=== PATIENT | male | born 1995 | race Caucasian/White ===

== ENCOUNTER 2017-01-06 15:50 | Observation (INO) | payer OTHER ==
[2017-01-06] MEDS ORDERED: ONDANSETRON 4 MG/2 ML VIAL IVP ONE (17:14)
[2017-01-06] MEDS ORDERED: FAMOTIDINE 20 MG/NACL 50 ML IV ONE (17:14)
[2017-01-06] MEDS ORDERED: NS 1,000 ML IV ONE ×2 (17:14)
--- NOTE | 2017-01-06 17:16 | CPEKG ---
Heart Rate: 59 RR Interval: 1017 P-R Interval: 132 QRSD Interval: 110 QT Interval: 424 QTC Interval: 420 P Danese: 56 QRS Danese: 79 T Wave Danese: 32 EKG Severity - ABNORMAL ECG - EKG Impression: SINUS RHYTHM EKG Impression: NONSPECIFIC INTRAVENTRICULAR CONDUCTION DELAY EKG Impression: LATERAL Q WAVES, PROBABLY NORMAL VARIATION Electronically Signed By: Darío Morales 06-Jan-2017 23:39:44
--- NOTE | 2017-01-06 17:20 | EDPHY ---
H & P Time Seen by Provider: 01/06/17 16:54 HPI/ROS: HPI Tingling in hands and feet, vomiting, diarrhea, feels weak. 21-year-old male by private vehicle with his father. This patient reports that on evening he started feeling nausea with loss of appetite and fatigue this was followed by watery diarrhea. He went up to [place] to see friends of his. He reports that he developed vomiting last night and had 6 episodes of nonbilious vomiting with multiple episodes of watery diarrhea. He denies any alcohol or drug use or other ingestions. His father had him returned home and his father picked him up from the airport about an hour prior to arrival to our emergency department and came straight here. The patient denies any ill contacts. No change in diet. He has not been camping. ROS: Constitutional: No fever, no chills. As above. Eyes: No discharge. No changes in vision. ENT: No sore throat. No nasal congestion or rhinorrhea. Respiratory: No cough. No shortness of breath. Cardiac: No chest pain, no palpitations. Gastrointestinal: No abdominal pain, as above. Genitourinary: No hematuria. No dysuria or increased frequency with urination. Musculoskeletal: No back pain. No neck pain. No myalgias or arthralgias. Skin: No rashes. Neurological: No headache. No focal weakness or altered sensation. Past medical history: Vasovagal syncope. Social history: Physical Exam: General Appearance: Sleepy on initial evaluation but easily arousable. Pale. This patient is responding to questions appropriately and in full sentences. This patient appears well-hydrated and well-nourished. Eyes: Pupils equal and round no pallor or injection. No lid edema, erythema or injection. ENT, Mouth: Mucous membranes are moist. The pharyngeal tissues are unremarkable. No edema or swelling. No asymmetry suggestive of abscess. No erythema or exudates. No tongue lacerations or abrasions. Respiratory: There are no retractions, lungs are clear to auscultation with good air movement bilaterally. Cardiovascular: Regular rate and rhythm. No murmur. Gastrointestinal: Abdomen is soft and nontender, no masses, bowel sounds normal. No focal tenderness at McBurney's point. No Chaves sign. Neurological: Motor sensory function is grossly intact. Cranial nerves are normal. Gait is normal. Skin: Warm and dry, no rashes. Musculoskeletal: Neck is supple and nontender. Extremities are symmetrical. All joints range without pain or impingement. Psychiatric: No agitation. No depression. Database: EKG: EKG time is 5:14 p.m.; EKG shows a narrow complex normal sinus rhythm with a ventricular rate of 59. Nonspecific intraventricular conduction delay noted. The AL, QRS, QT intervals are within normal limits. There are no ST-T wave changes indicative of ischemic or injury pattern. No evidence of right heart strain. No evidence of WPW, hypertrophic cardiomyopathy, Brugada syndrome. Interpreted by me. Imaging: Right upper quadrant ultrasound: Small amount of sludge in the gallbladder. Otherwise normal. Results were discussed with staff radiologist Dr. Casa Israel. CT scan of the abdomen and pelvis with IV contrast: Some gary portal edema in a dilated inferior vena cava. This is likely secondary to IV hydration. No other significant pathology. Results were discussed with staff radiologist Dr. Casa Israel. Procedures: Emergency department course: The patient was initially in room 25. While an IV was being placed he had a vasovagal syncopal episode. He became markedly diaphoretic and bradycardic into the 30s. soap slabber showed what appeared to be a junctional rhythm. Blood pressure had not been established at this time. He then had an episode of vomiting. He had been drinking blue Gatorade in his vomit was bluish in color. He was immediately moved to resuscitation Power 1. An additional IV was established. Dopamine and atropine to the bedside. He was started on IV normal saline 1-2 L to be bolused. His heart rate gradually came up and was clearly identifiable as a sinus rhythm on the monitor with a rate in the 50s. Initial blood pressure was 70/30 but this came up to 105/52 a short time later. EKG was performed. Blood glucose verified on serum chemistry as within normal limits. 5:30 p.m., patient re-evaluated, light bulb replacer shows a narrow complex sinus rhythm in the low 60s. Blood pressure is currently 107/60. He denies any complaints at this time. He will be given 4 mg of IV Zofran and 20 mg of IV Pepcid. 5:50 p.m., patient re-evaluated. He is resting comfortably at this time. I discussed the results of his blood work and elevated liver function test. Explained that we would obtain a right upper quadrant ultrasound to evaluate his gallbladder. Repeat abdominal exam he again has no right upper quadrant tenderness on palpation of this is negative will send a hepatitis panel. 6:15 p.m., patient re-evaluated. soap slabber shows a narrow complex sinus rhythm ventricular rate of 54. Blood pressure currently 90/72. Results of ultrasound discussed with father and patient. We will obtain a CT scan of the abdomen and pelvis to evaluate for possible malignancy or other pathology as an etiology of the patient's elevated liver function tests and vomiting. Hepatitis panel pending. 7:15 p.m., patient re-evaluated. Resting comfortably at this time. Results of CT scan discussed with him. Vital signs reviewed. soap slabber shows a narrow complex sinus rhythm ventricular rate of 54, blood pressure currently 90/ 52. Plan for admission discussed with him and his father. All of their questions were answered. 7:30 p.m., spoke with on-call hospitalist. She has accepted the patient for admission. Patient's remaining emergency department course under my care has been uneventful. Patient admitted to the hospitalist service, telemetry, in stable and improved condition. Differential Diagnosis: The differential diagnosis on this patient includes but is not limited to food borne illness, hypoglycemia, viral gastroenteritis, hepatitis, cholecystitis, cholangitis, pancreatitis, malignancy. This represents a partial list of diagnoses considered. These considerations are based on history, physical exam , past history, reassessment and diagnostic testing. Smoking Status: Never smoked Constitutional: Initial Vital Signs Temperature (C) 36.5 C 01/06/17 15:57 Heart Rate 80 01/06/17 15:57 Respiratory Rate 16 01/06/17 15:57 Blood Pressure 110/87 H 01/06/17 15:57 O2 Sat (%) 97 01/06/17 15:57 O2 Delivery Mode Room Air Allergies/Adverse Reactions: No Known Allergies Allergy (Unverified 03/10/12 13:10) Home Medications: Medication Instructions Recorded No Medications [NO HOME 1 ea [facility] 03/10/12 MEDICATIONS] Medical Decision Making - Data Points Laboratory Results: Laboratory Results 01/06/17 17:07 01/06/17 17:10 01/06/17 01/06/17 01/06/17 17:10 17:07 17:07 WBC 3.93 10^3/uL 10^3/uL (3.80-9.50) RBC 4.93 10^6/uL 10^6/uL (4.40-6.38) Hgb 16.0 g/dL g/dL (13.7-17.5) Hct 45.5 % % (40.0-51.0) MCV 92.3 fL fL (81.5-99.8) MCH 32.5 pg pg (27.9-34.1) MCHC 35.2 g/dL g/dL (32.4-36.7) RDW 12.0 % % (11.5-15.2) Plt Count 114 10^3/uL L 10^3/uL (150-400) MPV 9.5 fL fL (8.7-11.7) Neut % (Auto) 65.1 % % (39.3-74.2) Lymph % (Auto) 13.7 % L % (15.0-45.0) [place]yler % (Auto) 9.4 % % (4.5-13.0) Eos % (Auto) 11.2 % H % (0.6-7.6) Baso % (Auto) 0.3 % % (0.3-1.7) Nucleat RBC Rel Count 0.0 % % (0.0-0.2) Absolute Neuts (auto) 2.56 10^3/uL 10^3/uL (1.70-6.50) Absolute Lymphs (auto) 0.54 10^3/uL L 10^3/uL (1.00-3.00) Absolute Monos (auto) 0.37 10^3/uL 10^3/uL (0.30-0.80) Absolute Eos (auto) 0.44 10^3/uL H 10^3/uL (0.03-0.40) Absolute Basos (auto) 0.01 10^3/uL L 10^3/uL (0.02-0.10) Absolute Nucleated RBC 0.00 10^3/uL 10^3/uL (0-0.01) Immature Gran % 0.3 % % (0.0-1.1) Seg Neutrophils % 15 % % Band Neutrophils % 57 % % Lymphocytes % 19 % % Eosinophils % 9 % % Immature Gran # 0.01 10^3/uL 10^3/uL (0.00-0.10) Absolute Seg Neuts 0.59 10^/uL L 10^/uL (1.70-6.50) Absolute Band Neuts 2.24 10^3/uL H 10^3/uL (0.00-0.70) Absolute Lymphocytes 0.75 10^3/uL L 10^3/uL (1.00-3.00) Absolute Eosinophils 0.35 10^3/uL 10^3/uL (0.03-0.40) RBC/WBC/PLT Morphology NORMAL (NORMAL) Platelet Estimate DECREASED L (ADEQ) PT INR APTT Sodium 134 mEq/L mEq/L (134-144) Potassium 4.0 mEq/L mEq/L (3.5-5.2) Chloride 97 mEq/L mEq/L (97-110) Carbon Dioxide 27 mEq/l mEq/l (22-31) Anion Gap 10 mEq/L mEq/L (8-16) BUN 9 mg/dL mg/dL (7-23) Creatinine 0.8 mg/dL mg/dL (0.7-1.3) Estimated GFR > 60 Glucose 86 mg/dL mg/dL (70-100) Calcium 8.6 mg/dL mg/dL (8.5-10.4) Total Bilirubin 2.0 mg/dL H mg/dL (0.1-1.4) Conjugated Bilirubin 0.7 mg/dL H mg/dL (0.0-0.5) Unconjugated Bilirubin 1.3 mg/dL H mg/dL (0.0-1.1) AST 166 IU/L H IU/L (17-59) ALT 321 IU/L H IU/L (21-72) Alkaline Phosphatase 153 IU/L H IU/L (38-126) Total Protein 7.0 g/dL g/dL (6.3-8.2) Albumin 3.9 g/dL g/dL (3.5-5.0) Lipase 98.0 IU/L IU/L (23-300) Ethyl Alcohol < 10 mg/dL mg/dL (0-10) Hepatitis A IgM Ab Pending Hep Bs Antigen Pending Hep B Core IgM Ab Pending Hepatitis C Antibody Pending 01/06/17 17:00 WBC RBC Hgb Hct MCV MCH MCHC RDW Plt Count MPV Neut % (Auto) Lymph % (Auto) Schuyler % (Auto) Eos % (Auto) Baso % (Auto) Nucleat RBC Rel Count Absolute Neuts (auto) Absolute Lymphs (auto) Absolute Monos (auto) Absolute Eos (auto) Absolute Basos (auto) Absolute Nucleated RBC Immature Gran % Seg Neutrophils % Band Neutrophils % Lymphocytes % Eosinophils % Immature Gran # Absolute Seg Neuts Absolute Band Neuts Absolute Lymphocytes Absolute Eosinophils RBC/WBC/PLT Morphology Platelet Estimate PT 14.6 SEC SEC (12.0-15.0) INR 1.15 (0.83-1.16) APTT 30.9 SEC SEC (23.0-38.0) Sodium Potassium Chloride Carbon Dioxide Anion Gap BUN Creatinine Estimated GFR Glucose Calcium Total Bilirubin Conjugated Bilirubin Unconjugated Bilirubin AST ALT Alkaline Phosphatase Total Protein Albumin Lipase Ethyl Alcohol Hepatitis A IgM Ab Hep Bs Antigen Hep B Core IgM Ab Hepatitis C Antibody Medications Given: Discontinued Medications Sodium Chloride (Ns) 1,000 mls @ 0 mls/hr IV ONCE ONE PRN Reason: Wide Open Stop: 01/06/17 17:15 Last Admin: 01/06/17 17:00 Dose: 1,000 mls Sodium Chloride (Ns) 1,000 mls @ 0 mls/hr IV ONCE ONE PRN Reason: Wide Open Stop: 01/06/17 17:15 Last Admin: 01/06/17 17:20 Dose: 1,000 mls Famotidine/Sodium Chloride (Pepcid 20 Mg (Premix)) 50 mls @ 200 mls/hr IV EDNOW ONE Stop: 01/06/17 17:28 Last Admin: 01/06/17 18:17 Dose: 50 mls Ondansetron HCl (Zofran) 4 mg IVP EDNOW ONE Stop: 01/06/17 17:15 Last Admin: 01/06/17 18:30 Dose: Not Given Departure - Departure Disposition: [facility] In[facility] Acute Clinical Impression: Transaminitis, Vomiting, Diarrhea, Hypotension, Thrombocytopenia, Bradycardia Referrals: NONE *PRIMARY CARE P,. [Primary Care Provider] - As per Instructions
[2017-01-06 17:31] LABS: ALANINE AMINOTRANSFERASE 321 IU/L (21-72); ALBUMIN 3.9 g/dL (3.5-5.0); ALKALINE PHOSPHATASE 153 IU/L (38-126); ANION GAP 10 mEq/L (8-16); ASPARTATE AMINOTRANSFERASE 166 IU/L (17-59); BILIRUBIN-CONJUGATED 0.7 mg/dL (0.0-0.5); BILIRUBIN-UNCONJUGATED 1.3 mg/dL (0.0-1.1); CALCIUM 8.6 mg/dL (8.5-10.4); CARBON DIOXIDE 27 mEq/l (22-31); CHLORIDE 97 mEq/L (97-110); CREATININE 0.8 mg/dL (0.7-1.3); ETHANOL SERUM < 10 mg/dL (0-10); GLOMERULAR FILTRATION RATE > 60; GLUCOSE 86 mg/dL (70-100); SODIUM 134 mEq/L (134-144)
[2017-01-06 17:34] LABS: % IMMATURE GRANULYOCYTES 0.3 % (0.0-1.1); ABSOLUTE IMMATURE GRANULOCYTES 0.01 10^3/uL (0.00-0.10); ADD DIFF? NO; ADD MORPH? NO; ADD SCAN? YES; FRAGMENT RBC FLAG 0 (0-99); HEMATOCRIT 45.5 % (40.0-51.0); LIPEMIA HEMOLYSIS FLAG 90 (0-99); MEAN CELL HEMOGLOBIN 32.5 pg (27.9-34.1); MEAN CELL HEMOGLOBIN CONCENTR. 35.2 g/dL (32.4-36.7); MEAN CELL VOLUME 92.3 fL (81.5-99.8); MEAN PLATELET VOLUME 9.5 fL (8.7-11.7); PLATELET CLUMPS FLAG 20 (0-99); PLATELET COUNT 114 10^3/uL (150-400); RED BLOOD CELL COUNT 4.93 10^6/uL (4.40-6.38)
[2017-01-06 17:36] LABS: ATYPICAL LYMPHOCYTE FLAG 180 (0-99); LEFT SHIFT FLG 220 (0-99)
[2017-01-06 17:58] LABS: SCAN POSITIVE
[2017-01-06 18:04] LABS: PLATELET ESTIMATE DECREASED (ADEQ)
[2017-01-06] MEDS ORDERED: IOPAMIDOL (ISOVUE-300) 100 ML BTL IV ONE (18:29)
[2017-01-06 18:30] LABS: APTT 30.9 SEC (23.0-38.0); INR 1.15 (0.83-1.16); PROTIME(PATIENT) 14.6 SEC (12.0-15.0)
[2017-01-06] MEDS ORDERED: ONDANSETRON 4 MG/2 ML VIAL IVP PRN (20:59)
[2017-01-06] MEDS ORDERED: PROMETHAZINE HCL 25 MG/ML INJ IVP PRN (20:59)
[2017-01-06] MEDS ORDERED: ACETAMINOPHEN 325 MG TAB PO PRN (20:59)
[2017-01-06] MEDS ORDERED: ONDANSETRON DISINTEGRATING 4 MG TAB PO PRN (20:59)
[2017-01-06] MEDS ORDERED: PROMETHAZINE HCL 25 MG TAB PO PRN (20:59)
[2017-01-06] MEDS ORDERED: NS 1,000 ML IV SCH (21:00)
--- NOTE | 2017-01-06 21:27 | PDGENHP ---
History and Physical - Chief Complaint vomiting and diarrhea - History of Present Illness 21 yo otherwise healthy male presents to ED with 2 days of diarrhea and vomiting. He awoke 2 days ago feeling mild tingling in his hands. He then had watery diarrhea x1. Diarrhea occurred again the following day and was followed by several episodes of vomiting. He was visiting friends in [place] at the time and flew home early due to feeling poorly. He reports subjective fevers. There was no hematochezia, melena or hematemesis. He denies abdominal pain with his diarrhea or vomiting. No sick contacts or suspicious food exposures. No recent travel (he was in [facility] in 05/2016). No recent atbx. In the ED, he had an episode of vasovagal syncope while having an IV placed. Apparently, he has a h/o syncope and vasovagal symptoms getting vaccines or any type of needle stick. He became hypotensive here and bradycardic to the 30's in the ED during this event. He received a total of 3 L NS and is now hemodynamically stable. He apparently had a 2nd episode of hypotension and bradycardia an hour after his needle stick. For this reason, he is admitted to the PCU for further evaluation. History Information - Allergies/Home Medication List Allergies/Adverse Reactions: No Known Allergies Allergy (Unverified 03/10/12 13:10) Home Medications: NK [No Known Home Meds] 01/06/17 [Last Taken Unknown] I have personally reviewed and updated: family history, medical history, social history, surgical history - Past Medical History Additional medical history: h/o vasovagal syncope related to needles - Surgical History Reports: no pertinent surgical hx - Family History Positive for: non-pertinent - Social History Smoking Status: Never smoked Alcohol Use: None Drug Use: None Additional social history: 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 Lives with roommates. Review of Systems ROS: 10pt was reviewed & negative except for what was stated in HPI & below Physical Exam Temp Pulse Resp BP Pulse Ox 36.5 C 84 16 96/68 L 98 01/06/17 15:57 01/06/17 19:57 01/06/17 19:57 01/06/17 20:18 01/06/17 19:57 Constitutional: no apparent distress Eyes: PERRL Ears, Nose, Mouth, Throat: moist mucous membranes Cardiovascular: regular rate and rhythym Respiratory: no respiratory distress, clear to auscultation Gastrointestinal: normoactive bowel sounds, soft, non-tender abdomen Skin: warm Musculoskeletal: full muscle strength Neurologic: AAOx3 Psychiatric: interacting appropriately Lab Data & Imaging Review 01/06/17 17:07 01/06/17 17:10 WBC 3.93 10^3/uL (3.80-9.50) 01/06/17 17:07 RBC 4.93 10^6/uL (4.40-6.38) 01/06/17 17:07 Hgb 16.0 g/dL (13.7-17.5) 01/06/17 17:07 Hct 45.5 % (40.0-51.0) 01/06/17 17:07 MCV 92.3 fL (81.5-99.8) 01/06/17 17:07 MCH 32.5 pg (27.9-34.1) 01/06/17 17:07 MCHC 35.2 g/dL (32.4-36.7) 01/06/17 17:07 RDW 12.0 % (11.5-15.2) 01/06/17 17:07 Plt Count 114 10^3/uL (150-400) L 01/06/17 17:07 MPV 9.5 fL (8.7-11.7) 01/06/17 17:07 Neut % (Auto) 65.1 % (39.3-74.2) 01/06/17 17:07 Lymph % (Auto) 13.7 % (15.0-45.0) L 01/06/17 17:07 [place] % (Auto) 9.4 % (4.5-13.0) 01/06/17 17:07 Eos % (Auto) 11.2 % (0.6-7.6) H 01/06/17 17:07 Baso % (Auto) 0.3 % (0.3-1.7) 01/06/17 17:07 Nucleat RBC Rel Count 0.0 % (0.0-0.2) 01/06/17 17:07 Absolute Neuts (auto) 2.56 10^3/uL (1.70-6.50) 01/06/17 17:07 Absolute Lymphs (auto) 0.54 10^3/uL (1.00-3.00) L 01/06/17 17:07 Absolute Monos (auto) 0.37 10^3/uL (0.30-0.80) 01/06/17 17:07 Absolute Eos (auto) 0.44 10^3/uL (0.03-0.40) H 01/06/17 17:07 Absolute Basos (auto) 0.01 10^3/uL (0.02-0.10) L 01/06/17 17:07 Absolute Nucleated RBC 0.00 10^3/uL (0-0.01) 01/06/17 17:07 Immature Gran % 0.3 % (0.0-1.1) 01/06/17 17:07 Seg Neutrophils % 15 % 01/06/17 17:07 Band Neutrophils % 57 % 01/06/17 17:07 Lymphocytes % 19 % 01/06/17 17:07 Eosinophils % 9 % 01/06/17 17:07 Immature Gran # 0.01 10^3/uL (0.00-0.10) 01/06/17 17:07 Absolute Seg Neuts 0.59 10^/uL (1.70-6.50) L 01/06/17 17:07 Absolute Band Neuts 2.24 10^3/uL (0.00-0.70) H 01/06/17 17:07 Absolute Lymphocytes 0.75 10^3/uL (1.00-3.00) L 01/06/17 17:07 Absolute Eosinophils 0.35 10^3/uL (0.03-0.40) 01/06/17 17:07 RBC/WBC/PLT Morphology NORMAL (NORMAL) 01/06/17 17:07 Platelet Estimate DECREASED (ADEQ) L 01/06/17 17:07 PT 14.6 SEC (12.0-15.0) 01/06/17 17:00 INR 1.15 (0.83-1.16) 01/06/17 17:00 APTT 30.9 SEC (23.0-38.0) 01/06/17 17:00 Sodium 134 mEq/L (134-144) 01/06/17 17:10 Potassium 4.0 mEq/L (3.5-5.2) 01/06/17 17:10 Chloride 97 mEq/L (97-110) 01/06/17 17:10 Carbon Dioxide 27 mEq/l (22-31) 01/06/17 17:10 Anion Gap 10 mEq/L (8-16) 01/06/17 17:10 BUN 9 mg/dL (7-23) 01/06/17 17:10 Creatinine 0.8 mg/dL (0.7-1.3) 01/06/17 17:10 Estimated GFR > 60 01/06/17 17:10 Glucose 86 mg/dL (70-100) 01/06/17 17:10 Calcium 8.6 mg/dL (8.5-10.4) 01/06/17 17:10 Total Bilirubin 2.0 mg/dL (0.1-1.4) H 01/06/17 17:10 Conjugated Bilirubin 0.7 mg/dL (0.0-0.5) H 01/06/17 17:10 Unconjugated Bilirubin 1.3 mg/dL (0.0-1.1) H 01/06/17 17:10 AST 166 IU/L (17-59) H 01/06/17 17:10 ALT 321 IU/L (21-72) H 01/06/17 17:10 Alkaline Phosphatase 153 IU/L (38-126) H 01/06/17 17:10 Total Protein 7.0 g/dL (6.3-8.2) 01/06/17 17:10 Albumin 3.9 g/dL (3.5-5.0) 01/06/17 17:10 Lipase 98.0 IU/L (23-300) 01/06/17 17:10 Ethyl Alcohol < 10 mg/dL (0-10) 01/06/17 17:10 Assessment & Plan Assessment: Vomiting and diarrhea - most likely a viral gastroenteritis. GI pathogen panel is ordered. Supportive care planned. Transaminitis - No evidence of CBD dilation or acute cholecystitis on u/s or CT. Acute hepatitis panel is pending. This may be related to an acute viral gastroenteritis or possibly from transient hypoperfusion with vasovagal syncope and hypotension just before lab draw. Thrombocytopenia - Mild. Query dilutional as pt reports heavy water intake vs BM suppression in setting of viral illness vs ITP. Will follow. Vasovagal syncope with associated hypotension and bradycardia related to IV start - He recovered, but had a second event an hour later. Currently hemodynamically stable. He has a h/o this whenever he gets vaccines or needle sticks. Will monitor in PCU. DVT PPLX - low risk Full code Dispo - obs.
[2017-01-06 23:44] LABS: COLOR YELLOW; LEUKOCYTE ESTERASE,URINE NEGATIVE (NEGATIVE); NITRITE,URINE NEGATIVE (NEGATIVE)
[2017-01-07 04:12] VITALS: O2SAT 96
[2017-01-07 04:23] LABS: % IMMATURE GRANULYOCYTES 0.9 % (0.0-1.1); ABSOLUTE IMMATURE GRANULOCYTES 0.02 10^3/uL (0.00-0.10); ADD DIFF? NO; ADD MORPH? NO; ADD SCAN? NO; ATYPICAL LYMPHOCYTE FLAG 30 (0-99); FRAGMENT RBC FLAG 0 (0-99); HEMATOCRIT 39.2 % (40.0-51.0); HEMOGLOBIN 13.2 g/dL (13.7-17.5); LEFT SHIFT FLG 30 (0-99); LIPEMIA HEMOLYSIS FLAG 80 (0-99); MEAN CELL HEMOGLOBIN 32.3 pg (27.9-34.1); MEAN CELL HEMOGLOBIN CONCENTR. 33.7 g/dL (32.4-36.7); MEAN CELL VOLUME 95.8 fL (81.5-99.8); MEAN PLATELET VOLUME 9.7 fL (8.7-11.7); PLATELET CLUMPS FLAG 10 (0-99); PLATELET COUNT 93 10^3/uL (150-400); RED BLOOD CELL COUNT 4.09 10^6/uL (4.40-6.38); RED CELL DISTRIBUTION WIDTH 12.3 % (11.5-15.2)
[2017-01-07 04:31] LABS: ALANINE AMINOTRANSFERASE 238 IU/L (21-72); ALBUMIN 2.9 g/dL (3.5-5.0); ALKALINE PHOSPHATASE 127 IU/L (38-126); ANION GAP 6 mEq/L (8-16); ASPARTATE AMINOTRANSFERASE 109 IU/L (17-59); BILIRUBIN,TOTAL 0.9 mg/dL (0.1-1.4); CARBON DIOXIDE 24 mEq/l (22-31); CHLORIDE 109 mEq/L (97-110); CREATININE 0.8 mg/dL (0.7-1.3); GLOMERULAR FILTRATION RATE > 60; GLUCOSE 96 mg/dL (70-100); POTASSIUM 4.2 mEq/L (3.5-5.2); SODIUM 139 mEq/L (134-144); TOTAL PROTEIN 5.5 g/dL (6.3-8.2)
[2017-01-07 05:01] LABS: CORTISOL-AM 3.7 ug/dL (4.5-22.7)
[2017-01-07 08:18] VITALS: BP 119/65; PULSE 80; RESP 14; TEMP 98.1
--- NOTE | 2017-01-07 19:36 | GDS ---
DISCHARGE DIAGNOSES: 1. Vasovagal event while initiating IV access. 2. Increased LFTs. 3. Pancytopenia. 4. Low a.m. cortisol. 5. Eosinophilia. HISTORY: The patient is a 21-year-old male who presented to the emergency room with 2 days of vomit ing and diarrhea. While in the emergency room, he had an episode of vasovagal syncope while having an IV placed. He has a history of vasovagal syncope with any type of needlestick. He became hypote nsive and bradycardic in the 30s witnessed in the emergency room. He got 3 L of fluid and was admit nemesio to observation. He had no further vasovagal events during this hospitalization and was felt to be clear to need no f urther evaluation at this time. Interestingly, his laboratory studies are very abnormal. His LFTs are very high, AST 166, ALT 321, total bilirubin 2.0, mostly unconjugated. Abdominal ultrasound was negative. Abdominal CT scan was negative. Acute viral hepatitis panel is pending. I do suspect this is a viral illness. The cale ent was feeling much better after his observation period and very anxious for discharge home. I do feel this is okay with very close outpatient followup to ensure normalization of laboratory studies. Also found to be abnormal was his CBC with pancytopenia. White count 2.2, hematocrit 39.2, and plat elets 93. He had a significant 14% eosinophilia. Recommend followup outpatient testing and further evaluation if it does not normalize. Also incidentally noted during this hospitalization was a low a.m. cortisol level of 3.7. I do think this needs followup Cortrosyn stim testing which can also b e done as an outpatient. DISCHARGE MEDICATIONS: Please see computer record for full detailed list. There were no new medica tions given at time of hospital discharge. ADDITIONAL DISCHARGE INSTRUCTIONS: 1. Viral hepatitis panel is pending at discharge. Please follow up result with Dr. Campos. 2. Repeat blood work within 1 week, including a CBC with a manual diff and LFTs. 3. Outpatient Cortrosyn stim test to evaluate for possible adrenal insufficiency. 4. Pancytopenia with elevated eosinophils. This needs further workup if it does not resolve. 5. Consider outpatient testing for Monospot and EBV serologies which may be the viral etiology. Patient was seen and examined by me on the day of discharge. /[id number]/MODL
== END 2017-01-07 11:10 | disposition home or self-care (01) ==
LOC: INTOOBSV 19:43 → F2W 21:05
PROVIDERS: ADMIT Hospitalist; ATTEND Hospitalist
DX: R55 Syncope and collapse (principal); A08.4 Viral intestinal infection, unspecified; R00.1 Bradycardia, unspecified; D61.818 Other pancytopenia; I95.9 Hypotension, unspecified
CPT/HCPCS: 74177; 76705; 93005; G0378; 80305; 96374; G0480; Q9967